=== PATIENT | female | born 1985 | race Two or more races ===

== ENCOUNTER 2023-04-15 10:34 | Emergency (ER) | payer OTHER ==
[~2023-04-15] VITALS: Ht 165.1 cm; Wt 59.0 kg
[2023-04-15] MEDS ORDERED: LEVOTHYROXINE25 MC1 PO (11:28)
[2023-04-15] MEDS ORDERED: MONTELUKAST SOD10 MG PO (11:28)
== END 2023-04-15 13:13 | disposition home or self-care (01) ==
LOC: ER 10:34
DX: S62.525A Nondisplaced fracture of distal phalanx of left thumb, initial encounter for closed fracture (principal); S60.012A Contusion of left thumb without damage to nail, initial encounter; W22.8XXA Striking against or struck by other objects, initial encounter; Y93.89 Activity, other specified; Y92.018 Other place in single-family (private) house as the place of occurrence of the external cause; Y99.9 Unspecified external cause status; Z88.8 Allergy status to other drugs, medicaments and biological substances